=== PATIENT | male | born 1975 | race Caucasian/White ===

== ENCOUNTER 2017-09-14 15:13 | Emergency (ER) | payer OTHER ==
[~2017-09-14] VITALS: Ht 177.8 cm; Wt 118.4 kg
[2017-09-14 15:19] VITALS: BP 125/102
--- NOTE | 2017-09-14 15:28 | NUR ---
PT AMBULATED TO BED 2.
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
--- NOTE | 2017-09-14 16:07 | NUR ---
ER MD DR. GIL EVALUATING PT AT BEDSIDE.
[2017-09-14] MEDS ORDERED: KETOROLAC 60 MG/2 ML VIAL IM ONE (16:25)
[2017-09-14 17:16] VITALS: BP 137/74
--- NOTE | 2017-09-14 17:18 | NUR ---
Patient discharged with v/s stable. Written and verbal after care instructions given and explained. Patient alert, oriented and verbalized understanding of instructions. Ambulatory with steady gait. All questions addressed prior to discharge. ID band removed. Patient advised to follow up with PMD. Rx of MOTRIN 800MG TAB given. Patient educated on indication of medication including possible reaction and side effects. Opportunity to ask questions provided and answered.
== END 2017-09-14 17:16 | disposition home or self-care (01) ==
LOC: MED 15:13
DX: R51 Headache (principal); R73.9 Hyperglycemia, unspecified; I10 Essential (primary) hypertension; Z90.89 Acquired absence of other organs; F17.200 Nicotine dependence, unspecified, uncomplicated
CPT/HCPCS: 82948; 96372; 99283; J1885

== ENCOUNTER 2018-03-24 21:55 | Emergency (ER) | payer SELFPAY ==
[~2018-03-24] VITALS: Ht 177.8 cm; Wt 108.9 kg
[2018-03-24 22:00] VITALS: BP 143/76
--- NOTE | 2018-03-24 22:05 | NUR ---
TO LOBBY A/W BED, VIA W/C, MONY CABRERA NOTED
--- NOTE | 2018-03-24 23:13 | NUR ---
PT TAKEN BY WHEELCHAIR TO ER BED 05
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
[2018-03-24] MEDS ORDERED: KETOROLAC 15 MG/ML VIAL IM ONE (23:45)
--- NOTE | 2018-03-25 01:11 | NUR ---
PROVIDED FOOD AND BUS PASS FOR PATIENT.
[2018-03-25 01:12] VITALS: BP 143/76
--- NOTE | 2018-03-25 01:12 | NUR ---
Patient discharged with v/s stable with decreased pain. Written and verbal after care instructions given and explained. Patient alert, oriented and verbalized understanding of instructions. Ambulatory with steady gait. All questions addressed prior to discharge. ID band removed. Patient advised to follow up with PMD. Rx of Ibuprofen given. Patient educated on indication of medication including possible reaction and side effects. Opportunity to ask questions provided and answered.
== END 2018-03-25 01:12 | disposition home or self-care (01) ==
LOC: MED 21:55
DX: S83.91XA Sprain of unspecified site of right knee, initial encounter (principal); S80.11XA Contusion of right lower leg, initial encounter; I10 Essential (primary) hypertension; W51.XXXA Accidental striking against or bumped into by another person, initial encounter; Y93.89 Activity, other specified; Y99.8 Other external cause status; Y92.89 Other specified places as the place of occurrence of the external cause
CPT/HCPCS: 73562; 96372; 99284; J1885